=== PATIENT | female | born 1990 | race Caucasian/White ===

== ENCOUNTER 2017-03-17 16:49 | Emergency (ER) | payer MEDICAID, OTHER, SELFPAY | END 2017-03-17 19:45 | disposition left against medical advice (07) | LOC: MADERS 16:49 | DX: Z53.21 Procedure and treatment not carried out due to patient leaving prior to being seen by health care provider (principal) ==

== ENCOUNTER 2021-04-11 14:07 | Emergency (ER) | payer SELFPAY ==
[2021-04-12 14:16] LABS: SARS-CoV-2 PCR by NAA DETECTED (NotDetected)
== END 2021-04-11 14:40 | disposition home or self-care (01) ==
LOC: MADERS 14:07
DX: U07.1 COVID-19 (principal)
CPT/HCPCS: 99283; U0003; U0005

== ENCOUNTER 2022-01-24 08:09 | Emergency (ER) | payer MEDICAID, SELFPAY ==
[2022-01-24] MEDS ORDERED: predniSONE 20 MG TAB ONE (08:50)
[2022-01-24] MEDS ORDERED: Famotidine 20 MG TAB ONE (08:50)
[2022-01-24] MEDS ORDERED: diphenhydrAMINE 25 MG CAP ONE (08:50)
== END 2022-01-24 09:22 | disposition home or self-care (01) ==
LOC: MADERS 08:09
DX: L50.0 Allergic urticaria (principal)
CPT/HCPCS: 99282; J7512

== ENCOUNTER 2024-01-10 08:43 | Emergency (ER) | payer MEDICAID, SELFPAY ==
[2024-01-10 09:14] LABS: #Basophils 0.1 thou/uL (0.0-0.2); #Eosinophils 0.2 thou/uL (0.0-0.7); #Monocytes 0.6 thou/uL (0.11-0.59); #Neutrophils 3.5 thou/uL (1.40-6.50); %Basophils 1.1 % (0.0-1.0); %Eosinophils 2.9 % (0.0-10.0); %Lymphocytes 31.6 % (21.0-51.0); %Monocytes 9.8 % (0.0-10.0); %Neutrophils 54.6 % (42.0-75.0); Hematocrit 38.6 % (36.0-47.0); Hemoglobin 11.9 g/dL (12.0-16.0); Mean Corpuscular HGB CONC 30.8 g/dL (32.0-36.0); Mean Corpuscular Hemoglobin 25.6 pg (27.0-31.0); Mean Corpuscular Volume 83.1 fl (78.0-98.0); Mean Platelet Volume 9.1 fL (7.4-10.4); Platelet Count 316 10x3/uL (130-400); RBC Distribution Width 14.4 % (11.5-14.5); Red Blood Cell (RBC) Count 4.64 mill/uL (4.20-5.40); White Blood Cell (WBC) Count 6.3 10x3/uL (4.8-10.8)
[2024-01-10 09:22] LABS: ALT (SGPT) 63 U/L (8-55); AST (SGOT) 36 U/L (5-34); Albumin 3.6 g/dL (3.5-5.0); Alkaline Phosphatase 111 U/L (40-110); Anion Gap 12 mmol/L (10-20); BUN (Urea Nitrogen) 10 mg/dL (7.0-18.7); Bilirubin, Total 0.2 mg/dL (0.2-1.2); Calc. Creatinine Clearance 0 mL/min (70-130); Calcium 8.9 mg/dL (7.8-10.44); Carbon Dioxide 23 mmol/L (22-29); Chloride 108 mmol/L (98-107); Estimated GFR 101; Globulin 3.6 g/dL (2.4-3.5); Glucose 97 mg/dL (70-105); Protein, Total 7.2 g/dL (6.0-8.3); Sodium 139 mmol/L (136-145)
[2024-01-10 10:01] LABS: INR-International Normal Ratio 0.9; PTT 28.7 sec (22.9-36.1); Prothrombin Time 12.4 sec (12.0-14.7)
[2024-01-10 10:01] LABS: BHCG - Serum Negative (NEGATIVE); Pregs Control Background? CLEAR/WHITE (CLR/WHITE); Pregs Control Bar Appear? YES (CONTROL BAR)
[2024-01-10] MEDS ORDERED: Iopamidol 370 76% 100 ML VIAL ONE (16:11)
== END 2024-01-10 11:20 | disposition home or self-care (01) ==
LOC: MADERS 08:43
DX: J15.9 Unspecified bacterial pneumonia (principal); Z55.6 Problems related to health literacy
CPT/HCPCS: 36415; 71046; 71275; 80053; 84703; 85025; 85379; 85610; 85730; Q9967